=== PATIENT | female | born 2000 | race Hispanic/Latino ===

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

== ENCOUNTER 2022-12-05 00:20 | Emergency (ER) | payer MEDICAID ==
[~2022-12-05] VITALS: Ht 160 cm; Wt 77.1 kg
[~2022-12-05 00:20] MED LIST changes: +FAMO20TA8 PO
[2022-12-05] MEDS ORDERED: ONDANSETRON 4MG INJ ONE (00:38)
[2022-12-05] MEDS ORDERED: ONDANSETRON 4MG INJ IVP STA (00:41)
[2022-12-05] MEDS ORDERED: EPINEPHRINE PF 1MG (1:1,000) 1 MG/ML AMP IM ONE (01:00)
[2022-12-05] MEDS ORDERED: SOLU-MEDROL 125MG VIAL IVP ONE (01:00)
[2022-12-05] MEDS ORDERED: DiphenhydrAMINE HCL 50 MG/ML VIAL IV ONE (01:00)
[2022-12-05] MEDS ORDERED: DIPH50 PO (02:11)
[2022-12-05] MEDS ORDERED: PRED20TA3 PO (02:11)
[2022-12-05 02:41] VITALS: BP 124/74; PULSE 98; RESP 16; O2SAT 98
== END 2022-12-05 02:44 | disposition home or self-care (01) ==
LOC: EDH 00:20
DX: T78.49XA Other allergy, initial encounter (principal); J45.909 Unspecified asthma, uncomplicated; Z79.899 Other long term (current) drug therapy; Z98.890 Other specified postprocedural states; X58.XXXA Exposure to other specified factors, initial encounter
CPT/HCPCS: 99284; 96374; 96375; 96372; J1200; J2930; J0171; J2405

== ENCOUNTER 2023-05-21 19:42 | Emergency (ER) | payer MEDICAID ==
[~2023-05-21] VITALS: Ht 160 cm; Wt 81.6 kg
[~2023-05-21 19:42] MED LIST changes: +DIPH50 PO; +PRED20TA3 PO
[2023-05-21 21:11] LABS: APPEARANCE,URINE CLEAR (CLEAR); BILIRUBIN,URINE NEGATIVE (NEGATIVE); COLOR,URINE LIGHT-YELLOW (YELLOW); GLUCOSE, URINE (UA) NEGATIVE (NEGATIVE); KETONES,URINE NEGATIVE (NEGATIVE); LEUKOCYTE ESTERASE ,URINE NEGATIVE Leu/uL (NEGATIVE); NITRATE,URINE NEGATIVE (NEGATIVE); OCCULT BLOOD,URINE NEGATIVE (NEGATIVE); PH,URINE 5.5 (5.0-8.0); PROTEIN,URINE NEGATIVE (NEGATIVE); UROBILINOGEN,URINE 0.2 mg/dL (0.2-1.0)
[2023-05-21 21:14] LABS: ADD UA MICROSCOPIC NO
[2023-05-22 00:18] VITALS: BP 138/74; PULSE 82; RESP 20; O2SAT 100
== END 2023-05-22 00:23 | disposition home or self-care (01) ==
LOC: EDH 19:42
DX: O26.891 Other specified pregnancy related conditions, first trimester (principal); R10.32 Left lower quadrant pain; J45.909 Unspecified asthma, uncomplicated; Z3A.01 Less than 8 weeks gestation of pregnancy; Z79.899 Other long term (current) drug therapy; Z98.890 Other specified postprocedural states
CPT/HCPCS: 76700; 81003

== ENCOUNTER 2024-01-16 21:07 | Emergency (ER) | payer MEDICAID ==
[~2024-01-16] VITALS: Ht 157.5 cm; Wt 85.7 kg
[~2024-01-16 21:07] MED LIST changes: -CEPH500B PO; -FAMO20TA8 PO; -PHEN-847 PO; -PRED20TA3 PO
[2024-01-16 21:37] LABS: APPEARANCE,URINE CLEAR (CLEAR); BILIRUBIN,URINE NEGATIVE (NEGATIVE); COLOR,URINE YELLOW (YELLOW); GLUCOSE, URINE (UA) NEGATIVE (NEGATIVE); KETONES,URINE 5 mg/dL (NEGATIVE); LEUKOCYTE ESTERASE ,URINE 75 Leu/uL (NEGATIVE); NITRATE,URINE NEGATIVE (NEGATIVE); OCCULT BLOOD,URINE LARGE (NEGATIVE); PROTEIN,URINE 30 mg/dL (NEGATIVE); UROBILINOGEN,URINE 0.2 mg/dL (0.2-1.0)
[2024-01-16 21:42] LABS: ADD UA MICROSCOPIC YES
[2024-01-16 21:43] LABS: BACTERIA,URINE RARE /HPF (None Seen); MUCUS,URINE RARE LPF (None Seen); RBC,URINE TNTC /HPF (0-1); SQUAMOUS EPITHELIAL CELL,UR FEW /HPF (0-2)
[2024-01-16 21:46] LABS: SARS-CoV-2, RNA, NAAT NEGATIVE SARS CoV-2 (NEGATIVE)
[2024-01-16 21:52] LABS: INFLUENZA TYPE A Negative For Type A (NEGATIVE); INFLUENZA TYPE B Negative For Type B (NEGATIVE)
[2024-01-16 23:13] LABS: BASOPHILS # (AUTO) 0.03 K/uL (0.00-0.20); BASOPHILS % (AUTO) 0.2 % (0.0-5.0); HEMATOCRIT 36.6 % (36-48); IMMATURE GRANULOCYTE ABSOLUTE 0.05 K/uL (0-1); LYMPHOCYTES # (AUTO) 1.3 K/uL (1.0-4.8); LYMPHOCYTES % (AUTO) 9.7 % (21.0-51.0); MEAN CORPUSCULAR HEMOGLOBIN 24.2 pg (27.0-33.0); MEAN CORPUSCULAR HGB CONC 31.4 g/dL (32.0-36.0); MEAN CORPUSCULAR VOLUME 77.1 fL (80-100); MONOCYTES # (AUTO) 1.3 K/uL (0.1-1.0); MONOCYTES % (AUTO) 9.6 % (3.0-13.0); NEUTROPHILS # (AUTO) 11.1 K/uL (1.8-7.7); NEUTROPHILS % (AUTO) 80.1 % (40.0-77.0); PLATELET COUNT (AUTO) 252 K/uL (130-400); RED BLOOD CELL COUNT(AUTO) 4.75 MIL/uL (4.00-5.50); RED CELL DISTRIBUTION WIDTH 17.2 % (11.0-15.5); WHITE BLOOD COUNT (AUTO) 13.9 K/uL (4.8-10.8)
[2024-01-16] MEDS: 0.9%NACL 1000ML 1,000 ML IV ONE (23:16)
[2024-01-16] MEDS: ibuPROFEN 600 MG TABLET PO ONE (23:18)
[2024-01-16] MEDS: cefTRIAXone 1G VIAL IVPB ONE (23:18)
[2024-01-16 23:22] LABS: CREATININE 0.8 mg/dL (0.5-1.0); POTASSIUM 3.8 mmol/L (3.5-5.1)
[2024-01-17 00:12] LABS: WBC MORPHOLOGY CONSISTENT W/DIFF
[2024-01-17] MEDS: acetaMINOPHEN 500 MG TABLET PO ONE (00:24)
--- NOTE | 2024-01-17 00:42 | HMCIMG ---
US PELVIC NON-OB COMP HISTORY: Ovarian torsion COMPARISON: None TECHNIQUE: Transabdominal pelvic ultrasound study was performed. FINDINGS: The uterus measures 10 x 3 x 6 cm. The right ovary measures 3 x 1 x 2 cm. The left ovary measures 2 x 1 x 2 cm. Flow is seen in both ovaries. Endometrial thickness is 3 mm. No free fluid is seen in the cul-de-sac. IMPRESSION: 1. No adnexal mass is seen.
[2024-01-17 01:02] VITALS: BP 112/63; PULSE 108; RESP 16; TEMP 100.6; O2SAT 100
[2024-01-17 01:09] VITALS: TEMP 100.6
--- NOTE | 2024-01-17 01:13 | ERN ---
General Chief Complaint: Cough Stated Complaint: C/O FEVER, CHILLS,CONGESTION, HEADACHE, RT EARACHE Time Seen by MD: 21:10 Time Seen by Midlevel: 21:10 Source: patient History of Present Illness Initial Comments Patient is a 23-year-old female presenting to the emergency department with multiple complaints. Her primary concern today is that she is having pelvic pain. She reports being eight weeks which was complicated with preeclampsia. The pelvic pain started earlier today and worsened throughout the day. She also reports cough, congestion, and fever. She was seen for the same complaints yesterday at [facility] ER where she had a negative chest x-ray and urine. She was discharged home with supportive management. Today she reports feeling significantly worse so she decided to come in for further evaluation. Allergies: Coded Allergies: amoxicillin (Unverified Allergy, Intermediate, SWOLLEN TONGUE, 01/16/24) RASH IN ADDITION TO THROAT/TOUNGUE SWELLING vancomycin (Unverified Allergy, Intermediate, SWELLING, 01/16/24) THROAT SWELLING AND RASH No Allergy Information Available (Verified Allergy, Unknown, 09/03/20) Home Meds Active Scripts Sulfamethoxazole/Trimethoprim (Bactrim Ds Tablet) 800 Mg-160 Mg Tablet, 1 TAB PO BID for 7 Days, #14 TAB 0 Refills Prov:TESSY STOLL 01/17/24 Diphenhydramine HCl (Benadryl) 50 Mg Cap, 50 MG PO QID PRN for itching for 10 Days, #30 CAP 0 Refills Prov:MIRNA POND MD 12/05/22 Past Medical History Past Medical History: No Pertinent History Past Surgical History: None Surgical History Other: CYST REMOVAL FROM RT BREAST 5 YRS AGO Family History Family History: Negative Social History Social History: Negative, Lives with family Female( History) LMP: Jan 16, 2024 : 1 Para: 0 Aborts: 0 ROS Dictation CONSTITUTIONAL: Negative except for HPI HEAD/FACE: Negative except for HPI EENT: Negative except for HPI RESPIRATORY: Negative except for HPI GASTROINTESTINAL/ABDOMINAL: Negative except for HPI GENITOURINARY: Negative except for HPI MUSCULOSKELETAL: Negative except for HPI INTEGUMENTARY: Negative except for HPI NEUROLOGICAL/PSYCH: Negative except for HPI HEMATOLOGIC/LYMPHATIC: Negative except for HPI All Systems Negative, Except as noted above. 13 point review of systems assessed and all negative except for above. Physical Exam Physical Exam Dictation Vital Signs reviewed General Appearance: Alert, oriented x 3, no acute distress, well developed, nourished. Head and Face: non-traumatic. Eyes: PERRL, pink conjunctivas, eyelid no trauma, anterior chamber with arcus senilis. Ears: Pinnas intact and no signs of trauma or erythema ear canals clear and no discharge TM no erythema Nose: No discharge, no bleeding. Oropharynx: Mouth normal, tongue pink, pharynx clear,no erythema, tonsils no exudates, no abscesses noted, mucous membrane moist Neck: Supple, non-tender, no thyromegaly, no masses, no JVD, no bruits Breast:Deferred Chest:No tenderness, no crepitus, no paradoxical movement, no retractions Lungs:Clear, well-ventilated, symmetric, no rales, no wheezing, no rhonchi, no stridor, good breath sounds bilaterally Heart: Tachycardic, regular rhythm, no murmur, no gallops Vascular: no peripheral edema, Abdomen: Soft, positive bowel sounds, nondistended, no guarding, Left lower quadrant tenderness, no rebound, no masses no hepatomegaly, no splenomegaly, no Montes's sign, no hernias. No CVA tenderness Rectal: Deferred Genital: Deferred Neurological: Normal speech, motor function intact, sensory function intact Musculoskeletal: Neck nontender, full range of motion, back nontender, full range of motion, Extremities: nontender, full range of motion Skin: Color pink, dry, no turgor, no rash, no lacerations, no abrasions, no contusions. Lymphatic: Deferred Results Laboratory and Microbiology Lab and Micro Result Laboratory Tests Test 01/16/24 21:16 01/16/24 23:00 01/17/24 00:22 Urine Color YELLOW (YELLOW) Urine Appearance CLEAR (CLEAR) Urine pH 6.0 (5.0-8.0) Urine Specific [place] 1.034 (1.001-1.031) Urine Protein 30 mg/dL (NEGATIVE) H Urine Glucose (UA) NEGATIVE mg/dL (NEGATIVE) Urine Ketones 5 mg/dL (NEGATIVE) H Urine Occult Blood LARGE (NEGATIVE) H Urine Nitrate NEGATIVE (NEGATIVE) Urine Bilirubin NEGATIVE mg/dL (NEGATIVE) Urine Urobilinogen 0.2 mg/dL (0.2-1.0) Urine Leukocyte Esterase 75 Michelle/uL (NEGATIVE) H Urine RBC TNTC /HPF (0-1) H Urine WBC 11-25 /HPF (0-1) H Urine Squamous Epithelial Cells FEW /HPF (0-2) Urine Bacteria RARE /HPF (None Seen) Influenza Type A Antigen Negative For Type A Influenza Type B Antigen Negative For Type B SARS-CoV-2, RNA, NAAT NEGATIVE SARS CoV-2 White Blood Count 13.9 K/uL (4.8-10.8) H Red Blood Count 4.75 MIL/uL (4.00-5.50) Hemoglobin 11.5 g/dL (12.0-16.0) L Hematocrit 36.6 % (36-48) Mean Corpuscular Volume 77.1 fL (80-100) L Mean Corpuscular Hemoglobin 24.2 pg (27.0-33.0) L Mean Corpuscular Hemoglobin Concent 31.4 g/dL (32.0-36.0) L Red Cell Distribution Width 17.2 % (11.0-15.5) H Platelet Count 252 K/uL (130-400) Mean Platelet Volume 10.8 fL (7.5-10.5) H Immature Granulocyte % (Auto) 0.4 % (0-1) Neutrophils (%) (Auto) 80.1 % (40.0-77.0) H Lymphocytes (%) (Auto) 9.7 % (21.0-51.0) L Monocytes (%) (Auto) 9.6 % (3.0-13.0) Eosinophils (%) (Auto) 0.0 % (0.0-8.0) Basophils (%) (Auto) 0.2 % (0.0-5.0) Neutrophils # (Auto) 11.1 K/uL (1.8-7.7) H Lymphocytes # (Auto) 1.3 K/uL (1.0-4.8) Monocytes # (Auto) 1.3 K/uL (0.1-1.0) H Eosinophils # (Auto) 0.00 K/uL (0.00-0.70) Basophils # (Auto) 0.03 K/uL (0.00-0.20) Absolute Immature Granulocyte (auto 0.05 K/uL (0-1) Nucleated Red Blood Cells 0.0 % (0.0-0.19) White Cell Morphology Comment CONSISTENT W/DIFF Platelet Morphology See comments Red Blood Cell Morphology See comments Sodium Level 140 mmol/L (136-145) Potassium Level 3.8 mmol/L (3.5-5.1) Chloride Level 103 mmol/L (101-111) Carbon Dioxide Level 26 mmol/L (21-32) Blood Urea Nitrogen 11 mg/dL (7-18) Creatinine 0.8 mg/dL (0.5-1.0) Glomerular Filtration Rate Calc 107 mL/min (>90) Random Glucose 85 mg/dL (70-105) Total Calcium 8.0 mg/dL (8.5-10.1) L Serum Test, Qualitative NEGATIVE (NEGATIVE) Group A Streptococcus Rapid negative (NEGATIVE) Labs Reviewed?: Yes MDM MDM: Patient is a 23-year-old female presenting to the emergency department with multiple complaints. Her primary concern today is that she is having pelvic pain. She reports being eight weeks which was complicated with preeclampsia. The pelvic pain started earlier today and worsened throughout the day. She also reports cough, congestion, and fever. She was seen for the same complaints yesterday at [facility] ER where she had a negative chest x-ray and urine. She was discharged home with supportive management. Today she reports feeling significantly worse so she decided to come in for further evaluation. On physical examination patient is in no acute respiratory distress. She was febrile and tachycardic. Her abdominal examination revealed moderate left lower quadrant abdominal tenderness. There was no CVA tenderness. Her CBC shows leukocytosis with a left shift. Her chemistries unremarkable. Her urinalysis consistent with infection. There is large amount of occult blood in the urine analysis however patient reports being on her menstrual cycle. Given her moderate amount of tenderness on physical examination an ultrasound was performed to rule out an ovarian torsion. Ultrasound is unremarkable. Patient was given1 g of Rocephin,1 L arrival fluids, and Tylenol or Motrin in the ER. Fever trending downward. Patient will be discharged home with supportive management. Differential diagnosis: Urinary tract infection, pyelonephritis, viral syndrome, ovarian torsion There are no social concerns with this patient. Prescription drug management Prescriptions will include: Bactrim Medical management and examination interpretation discussions were had by me with other qualified healthcare professionals as indicated for the patient's care. ED Course Orders Procedure Category Date Status Time Covid Rna Naat LAB 01/16/24 Complete 21:10 Influenza Type A & B, LAB 01/16/24 Complete Rapid 21:10 Urinalysis Profile LAB 01/16/24 Complete 21:10 Culture Urine SARAH BETH 01/16/24 In Process 21:42 Cbc With Differential LAB 01/16/24 Complete 22:21 Basic Metabolic Panel LAB 01/16/24 Complete 22:21 Testing, LAB 01/16/24 Complete Serum Hcg 22:21 Us Pelvic Non-Ob Comp US 01/16/24 Resulted 22:21 Ibuprofen 600 Mg PHA 01/16/24 Complete Tablet (Motrin) 22:30 0.9%Nacl 1000ml (Ns PHA 01/16/24 Complete 1000ml) 22:30 Ceftriaxone 1g Vial PHA 01/16/24 Complete (Rocephine 1g Inj) 22:30 Rapid (Group A Strep) LAB 01/17/24 Complete 00:00 Acetaminophen 500mg PHA 01/17/24 Complete Tab (Tylenol 500mg T 00:30 Current Medications Medications (Trade) Dose Ordered Sig/Moy Route PRN Reason Start Time Stop Time Status Last Admin Dose Admin Acetaminophen (TYLenol 500MG TAB) 1,000 mg ONCE ONCE PO 01/17/24 00:30 01/17/24 00:31 DC 01/17/24 00:24 Ceftriaxone Sodium (ROCEphine 1G INJ) 1 gm ONCE ONCE IVPB 01/16/24 22:30 01/16/24 22:31 DC 01/16/24 23:18 Ibuprofen (moTRIN) 600 mg ONCE ONCE PO 01/16/24 22:30 01/16/24 22:31 DC 01/16/24 23:18 Sodium Chloride 1,000 ml @ 0 mls/hr ONCE ONCE IV 01/16/24 22:30 01/16/24 22:31 DC 01/16/24 23:16 Vital Signs Date Time Temp Pulse Resp B/P (MAP) Pulse Ox O2 Delivery O2 Flow Rate FiO2 01/17/24 01:02 100.6 108 16 112/63 100 Room Air* 0 01/17/24 00:24 101.8 01/16/24 23:38 101.8 129 18 124/76 100 Room Air* 0 01/16/24 23:18 102.7 01/16/24 23:09 102.7 138 20 144/97 100 Room Air* 0 21 01/16/24 21:11 102.7 138 20 144/97 100 Room Air DX & DISP Disposition: Discharge Departure Impression: Primary Impression: Urinary tract infection Additional Impressions: Leukocytosis, Fever Condition: Stable Scripts Sulfamethoxazole/Trimethoprim (Bactrim Ds Tablet) 800 Mg-160 Mg Tablet 1 TAB PO BID for 7 Days, #14 TAB 0 Refills Prov: TESSY STOLL 01/17/24 Referrals: SELF,REFERRAL (PCP) Time of Disposition: 01:18 I have reviewed the case, and I agree with, Diagnosis and Plan I performed the substantive portion of the visit. I have reviewed and personally made and approve the management plan that is documented in the note by myself or the LETICIA. I acknowledge for responsibility for the patient's management plan. TESSY STOLL Jan 17, 2024 01:13
[2024-01-17] MEDS ORDERED: SULF1TAB42 PO (01:19)
== END 2024-01-17 01:52 | disposition home or self-care (01) ==
LOC: EDH 21:07
DX: N39.0 Urinary tract infection, site not specified (principal); Z88.0 Allergy status to penicillin; Z88.1 Allergy status to other antibiotic agents; Z20.822 Contact with and (suspected) exposure to COVID-19
CPT/HCPCS: 99285; 96365; 76856; 87635; 80048; 84703; 85025; 87086; 87880; 87804 ×2; 81001; 36415; J7030; J0696

== ENCOUNTER 2024-03-01 18:10 | Emergency (ER) | payer MEDICAID ==
[~2024-03-01] VITALS: Ht 160 cm; Wt 83.9 kg
[~2024-03-01 18:10] MED LIST changes: +SULF1TAB42 PO
[2024-03-01 18:16] VITALS: BP 162/93; PULSE 95; RESP 18; TEMP 98.8; O2SAT 95
[2024-03-01 18:51] LABS: APPEARANCE,URINE CLEAR (CLEAR); BILIRUBIN,URINE NEGATIVE (NEGATIVE); COLOR,URINE COLORLESS (YELLOW); GLUCOSE, URINE (UA) NEGATIVE (NEGATIVE); KETONES,URINE NEGATIVE (NEGATIVE); LEUKOCYTE ESTERASE ,URINE NEGATIVE Leu/uL (NEGATIVE); NITRATE,URINE NEGATIVE (NEGATIVE); OCCULT BLOOD,URINE NEGATIVE (NEGATIVE); PH,URINE 6.5 (5.0-8.0); PROTEIN,URINE NEGATIVE (NEGATIVE); UROBILINOGEN,URINE 0.2 mg/dL (0.2-1.0)
[2024-03-01 18:55] LABS: ADD UA MICROSCOPIC NO
--- NOTE | 2024-03-01 19:22 | ERN ---
ED Note History of Present Illness Stated Complaint: URINARY FREQUENCY Chief Complaint: Urinary Frequency Time Seen by MD: 18:13 Time Seen by Midlevel: 18:18 Dictation: 23-year-old female with no past medical history coming in complaining of urinary frequency that started three days ago. Denies having any fever, nausea, vomiting or diarrhea. The patient also had recent delivery, vaginal, four months ago. Allergies: Coded Allergies: amoxicillin (Unverified Allergy, Intermediate, SWOLLEN TONGUE, 01/16/24) RASH IN ADDITION TO THROAT/TOUNGUE SWELLING vancomycin (Unverified Allergy, Intermediate, SWELLING, 01/16/24) THROAT SWELLING AND RASH Home Meds Active Scripts Sulfamethoxazole/Trimethoprim (Bactrim Ds Tablet) 800 Mg-160 Mg Tablet, 1 TAB PO BID for 7 Days, #14 TAB 0 Refills Prov:TESSY STOLL 01/17/24 Diphenhydramine HCl (Benadryl) 50 Mg Cap, 50 MG PO QID PRN for itching for 10 Days, #30 CAP 0 Refills Prov:MIRNA POND MD 12/05/22 Past Medical History Past Medical History: Asthma Surgical History: Other Surgical History Other: RT BREAST Family History: Negative Social History: Negative, Lives with family : 1 Para: 0 Aborts: 0 Review of System Dictation Constitutional: Negative for fever,chills, and weight loss Eyes: Negative for injury, pain,redness, and discharge ENT: Negative for injury,pain or swelling Cardiovascular: Negative for chest pain, palpitations, and edema Respiratory: Negative for shortness of breath, cough, and wheezing, Abdomen/GI: Negative for abdominal pain, nausea, vomiting, diarrhea, and constipation Back: Negative for injury and pain : Negative for injury, bleeding and discharge, urinary frequency MS/Extremity: Negative for injury and deformity Skin: Negative for rash, and discoloration Neuro: Negative for headache, weakness, numbness, tingling, and seizure Psych: Negative for suicide ideation, homicidal ideation, and hallucinations Review of Systems: was completed Initial Vital Sign VS Vital Signs Date Time Temp Pulse Resp B/P (MAP) Pulse Ox O2 Delivery O2 Flow Rate FiO2 03/01/24 18:13 98.8 95 18 162/93 95 Room Air 0 03/01/24 18:16 21 Physical Exam Dictation General: awake, alert, NAD Head/Face: Normocephalic, atraumatic Eyes: PERRL, EOMI, vision at baseline ENT: oral cavity clear, TMs clear, no signs of infection Neck: Trachea midline, supple, no nuchal rigidity Cardiovascular: RRR, normal S1/S2, No MRGs, no JVD Respiratory: CTAB, no respiratory distress, No rales or wheezes Abdomen: Soft, non-tender, non-distended, normal bowel sounds, no guarding or rebound. No CVA tenderness Skin: Warm, dry, normal turgor, no rash MS/Extremity: Pulses equal, no cyanosis, neurovascular intact, FROM Neuro: COAx4, GCS 15, strength 5/5, CN 2-12 intact, normal cerebellar exam, normal gait, Psych: Normal behavior, mood, and affect normal Results (Laboratory/Radiology) Laboratory/Radiology Laboratory Tests Test 03/01/24 18:17 Urine Color COLORLESS (YELLOW) Urine Appearance CLEAR (CLEAR) Urine pH 6.5 (5.0-8.0) Urine Specific [place] 1.004 (1.001-1.031) Urine Protein NEGATIVE mg/dL (NEGATIVE) Urine Glucose (UA) NEGATIVE mg/dL (NEGATIVE) Urine Ketones NEGATIVE mg/dL (NEGATIVE) Urine Occult Blood NEGATIVE (NEGATIVE) Urine Nitrate NEGATIVE (NEGATIVE) Urine Bilirubin NEGATIVE mg/dL (NEGATIVE) Urine Urobilinogen 0.2 mg/dL (0.2-1.0) Urine Leukocyte Esterase NEGATIVE Michelle/uL Urine HCG, Qualitative NEGATIVE (NEGATIVE) Labs Reviewed?: Yes EKG: (+) NSR ED Course ED Course Orders Procedure Category Date Status Time Urinalysis Profile LAB 03/01/24 Complete 18:29 ,Urine Test LAB 03/01/24 Complete 18:30 Bladder Scan CPOE 03/01/24 Transmitted 19:05 Vital Signs Date Time Temp Pulse Resp B/P (MAP) Pulse Ox O2 Delivery O2 Flow Rate FiO2 03/01/24 18:16 98.8 95 18 162/93 95 Room Air* 0 21 03/01/24 18:13 98.8 95 18 162/93 95 Room Air 0 Medical Decision Making MDM MDM: 23-year-old female with no past medical history coming in complaining of urinary frequency that started three days ago. Denies having any fever, nausea, vomiting or diarrhea. The patient also had recent delivery, vaginal, four mo nths ago. UA shows no evidence of urinary tract infection. Patient has no other symptoms, no CVA tenderness. Discussed with the patient that more than likely this is related to her vaginal delivery needs to work on doing Kegel's at home. Educated to follow up with her PCP or OBGYN. Also educated if symptoms worsen to please return to the emergency room. Differential diagnosis: Urinary tract infection, pyelonephritis, Rationale: Tests considered and ordered secondary to shared decision making include: Previous outside records reviewed: Old ER visits. Risk of complication and/or morbidity or mortality of patient management: None Medications-Per medication reconciliation Need for hospitalization: Patient does not meet criteria for hospitalization. Need for emergency major/minor surgery: No There are no social concerns with this patient. Prescription drug management Prescriptions will include symptomatic care Patient's prior external medical records from other ER visits were reviewed by me as indicated. Prior testing and results from previous visits were reviewed. Prior tests were taken into account with medical decision making and resource utilization, independent historian/historians were used to obtain complete medical history. I independently interpreted the test that were performed, results were reviewed by me and considered findings on radiology if ordered. Medical management and examination interpretation discussions were had by me with other qualified healthcare professionals as indicated for the patient's care. DX & DISP Disposition: Discharge Departure Impression: Primary Impression: Urinary frequency Condition: Stable Additional Instructions: Please follow up with PCP in 1-2 days or with your OBGYN. Return to the emergency room if you have any of the following symptoms, fever, nausea, vomiting, lower back pain. Referrals: OSEI SMALLS MD (PCP) Time of Disposition: 19:21 I have reviewed the case, and I agree with, Diagnosis and Plan YARIEL VALENTIN NP Mar 01, 2024 19:22
== END 2024-03-01 19:46 | disposition home or self-care (01) ==
LOC: EDH 18:10
DX: R35.0 Frequency of micturition (principal); J45.909 Unspecified asthma, uncomplicated; Z88.0 Allergy status to penicillin; Z88.1 Allergy status to other antibiotic agents; Z79.899 Other long term (current) drug therapy
CPT/HCPCS: 81003; 81025; 99284

== ENCOUNTER 2024-06-28 21:27 | Emergency (ER) | payer MEDICAID ==
[~2024-06-28] VITALS: Ht 157.5 cm; Wt 88.5 kg
--- NOTE | 2024-06-28 21:45 | ERN ---
ED Note History of Present Illness Stated Complaint: HIVES X 3 DAYS Chief Complaint: Allergic Reaction Time Seen by MD: 21:34 Dictation: This is a 23-year-old female who presented to the emergency room with complaints of hives going on off and on for 3 days. Apparently today 30-40 minutes prior to come into the ER she started developing the hives all over her chest arms back she took 25 of Benadryl prior to coming. She does not report any lip swelling or tongue swelling. No history of any shortness of breath or difficulty swallowing. No fevers chills or rigors. Patient and her showed me pictures of her skin rash which looks like urticaria. She denied any change in dietary habits, soaps or detergent. They stated that they were outside and it was hot. Temperature 98.8 pulse 113 respirations 20 blood pressure 148/91 with a pulse oximetry of 98% on room air Past medical history of asthma details in terms of severity appears mild Allergies: Coded Allergies: amoxicillin (Unverified Allergy, Intermediate, SWOLLEN TONGUE, 01/16/24) RASH IN ADDITION TO THROAT/TOUNGUE SWELLING vancomycin (Unverified Allergy, Intermediate, SWELLING, 01/16/24) THROAT SWELLING AND RASH Home Meds Active Scripts Sulfamethoxazole/Trimethoprim (Bactrim Ds Tablet) 800 Mg-160 Mg Tablet, 1 TAB PO BID for 7 Days, #14 TAB 0 Refills Prov:TESSY STOLL 01/17/24 Diphenhydramine HCl (Benadryl) 50 Mg Cap, 50 MG PO QID PRN for itching for 10 Days, #30 CAP 0 Refills Prov:MIRNA POND MD 12/05/22 Past Medical History Past Medical History: Asthma Surgical History: Other Surgical History Other: RT BREAST Family History: Negative Social History: Negative, Lives with family LMP: Jun 09, 2024 : 1 Para: 1 Aborts: 0 RN Note Reviewed/Agreed w/PFSH: Yes Review of System Dictation Constitutional: Negative for fever,chills, and weight loss Eyes: Negative for injury, pain,redness, and discharge ENT: Negative for injury,pain or swelling Cardiovascular: Negative for chest pain, palpitations, and edema Respiratory: Negative for shortness of breath, cough, and wheezing, Abdomen/GI: Negative for abdominal pain, nausea, vomiting, diarrhea, and constipation Back: Negative for injury and pain : Negative for injury, bleeding and discharge MS/Extremity: Negative for injury and deformity Skin: Positive for rash, and denied discoloration Neuro: Negative for headache, weakness, numbness, tingling, and seizure Psych: Negative for suicide ideation, homicidal ideation, and hallucinations Initial Vital Sign VS Vital Signs Date Time Temp Pulse Resp B/P (MAP) Pulse Ox O2 Delivery O2 Flow Rate FiO2 06/28/24 21:28 98.8 113 20 148/91 98 Room Air 06/28/24 21:47 0 21 Physical Exam Dictation General: awake, alert, NAD morbidly obese Head/Face: Normocephalic, atraumatic Eyes: PERRL, EOMI, vision at baseline ENT: oral cavity clear, TMs clear, no signs of infection Neck: Trachea midline, supple, no nuchal rigidity Cardiovascular: RRR, normal S1/S2, No MRGs, no JVD Respiratory: CTAB, no respiratory distress, No rales or wheezes Abdomen: Soft, non-tender, non-distended, normal bowel sounds, no guarding or rebound. Skin: Warm, dry, normal turgor, positive erythematous maculopapular rash only in the arms side of her body MS/Extremity: Pulses equal, no cyanosis, neurovascular intact, FROM Neuro: COAx4, GCS 15, strength 5/5, CN 2-12 intact, normal cerebellar exam, normal gait, Psych: Normal behavior, mood, and affect normal Extremities-trace edema without any palpable cords, Homans sign is negative ED Course ED Course Orders Procedure Category Date Status Time Methylprednisolone PHA 06/28/24 Transmitted Succ 125mg (Solu-Medr 22:30 Vital Signs Date Time Temp Pulse Resp B/P (MAP) Pulse Ox O2 Delivery O2 Flow Rate FiO2 06/28/24 21:47 98.8 108 18 129/65 99 Room Air* 0 21 06/28/24 21:28 98.8 113 20 148/91 98 Room Air Had a discussion with the patient and at bedside and educated them that it would be sometimes very difficult to pinpoint the exact trigger. She may n eed allergy testing by an sales project administrator. In the interim I asked him to use hydrocortisone cream PRN and we will also discharge her on a steroid pack Medical Decision Making MDM MDM: Differential diagnosis: Heat rash Allergic rash, folliculitis, contact dermatitis, rash due to dust mites Rationale: Tests considered and ordered secondary to shared decision making include: Previous outside records reviewed: Old ER visits. Risk of complication and/or morbidity or mortality of patient management: None Medications-Per medication reconciliation Need for hospitalization: Patient does not meet criteria for hospitalization. Need for emergency major/minor surgery: No There are no social concerns with this patient. Prescription drug management Prescriptions will include symptomatic care Patient's prior external medical records from other ER visits were reviewed by me as indicated. Prior testing and results from previous visits were reviewed. Prior tests were taken into account with medical decision making and resource utilization, independent historian/historians were used to obtain complete medical history. I independently interpreted the test that were performed, results were reviewed by me and considered findings on radiology if ordered. Medical management and examination interpretation discussions were had by me with other qualified healthcare professionals as indicated for the patient's care. Problem List Problem List: (1) Allergic reaction DX & DISP Disposition: Discharge Departure Impression: Primary Impression: Allergic reaction Condition: Stable Scripts Prednisone (Prednisone) 20 Mg Tablet 1 TAB PO AD for 6 Days, #14 TAB 0 Refills TAKE 1 TAB BY MOUTH THREE TIMES PER DAY X3 DAYS, THEN TAKE 1 TAB BY MOUTH TWICE A DAY X2 DAYS, THEN TAKE 1 TAB BY MOUTH ONCE A DAY X1 DAY. Prov: MARC SHIN MD 06/28/24 Additional Instructions: Patient and the caregiver have been informed of all the diagnostic tests and the imaging conducted during the today's visit to the emergency room and has verbalized understanding of the results I have personally reviewed and interpreted all diagnostic exams performed here in the ER today as well as the vital signs documented by the nursing staff. The patient is now being discharged to home and should follow up with the primary care physician or the specialist as directed by the ER staff. Follow-up with primary care provider in 1 to 2 days. Take medications as direc alfonso here in the emergency room. Okay to continue home medications unless otherwise discussed during your visit in the emergency room today. Return to your nearest emergency room if symptoms worsen or if there is no improvement. Call [phone] if you need immediate assistance. Take Tylenol or Motrin [id number] as needed and if no contraindications are present. Increase oral hydration. A wound culture or urine culture was ordered here in the emergency room department please follow-up with primary care provider and advise them to get repeat ports from our facility. If you had any Joseph wrap/splints that were applied here, please do not remove them until you see your primary care or specialty. Referrals: OSEI SMALLS MD (PCP) MARC SHIN MD June 28, 2024 21:45
[2024-06-28] MEDS ORDERED: PRED20TA3 PO (22:10)
[2024-06-28] MEDS: Solu-medROL 125MG VIAL IM ONE (22:29)
[2024-06-28 22:32] VITALS: BP 124/74; PULSE 99; RESP 18; TEMP 98.6; O2SAT 99
== END 2024-06-28 22:49 | disposition home or self-care (01) ==
LOC: EDH 21:27
DX: T78.40XA Allergy, unspecified, initial encounter (principal); J45.909 Unspecified asthma, uncomplicated; Z88.0 Allergy status to penicillin; Z88.1 Allergy status to other antibiotic agents; X58.XXXA Exposure to other specified factors, initial encounter
CPT/HCPCS: 99283; 96372; J2919